=== PATIENT | female | born 1960 | race Caucasian/White ===

== ENCOUNTER → 2017-10-21 | Outpatient (CLI) | payer BC ==
--- NOTE | 2017-10-21 16:27 | KCIC ---
Bilateral feet, 6 views, 10/21/2017: HISTORY: Rheumatoid arthritis, pain No fracture is identified. There are minimal degenerative changes at scattered interphalangeal joints. No bone erosions are evident. The soft tissues are unremarkable. IMPRESSION: No acute abnormality is detected. Electronically signed by: John Ambrose MD (10/21/2017 4:24 PM) [facility]
== END | disposition home or self-care (01) ==
LOC: KCIC 11:52
PROVIDERS: ATTEND Internal Medicine Rheumatology
DX: M06.871 Other specified rheumatoid arthritis, right ankle and foot (principal); M06.872 Other specified rheumatoid arthritis, left ankle and foot
CPT/HCPCS: 73630